=== PATIENT | male | born 1960 | race Two or more races ===

== ENCOUNTER 2023-12-15 10:25 | Emergency (ER) | payer OTHER ==
[~2023-12-15] VITALS: Ht 172.7 cm; Wt 73.0 kg
[2023-12-15] MEDS ORDERED: LIDOCAINE 1% INJ 50 ML MDV IJ ONE (11:04)
[2023-12-15] MEDS ORDERED: TDAP [DIPH/PERTUSSIS/TET] 0.5 ML VIAL IM ONE (11:12)
[2023-12-15] MEDS: TDAP [DIPH/PERTUSSIS/TET] 0.5 ML VIAL IM ONE (11:14)
[2023-12-15 11:53] VITALS: BP 134/93; TEMP 97.8; O2SAT 99
== END 2023-12-15 11:53 | disposition home or self-care (01) ==
LOC: ER 10:35
DX: S01.81XA Laceration without foreign body of other part of head, initial encounter (principal); Z60.2 Problems related to living alone; Z86.79 Personal history of other diseases of the circulatory system; X58.XXXA Exposure to other specified factors, initial encounter; Y93.89 Activity, other specified; Y92.092 Bedroom in other non-institutional residence as the place of occurrence of the external cause; Y99.2 Volunteer activity
CPT/HCPCS: 12013; 90471; 90715; 99283; A6403; J3490

== ENCOUNTER 2023-12-20 12:13 | Emergency (ER) | payer OTHER ==
[~2023-12-20] VITALS: Ht 175.3 cm; Wt 72.6 kg
[2023-12-20 12:13] VITALS: BP 133/76; TEMP 98.2
[2023-12-20 12:39] VITALS: O2SAT 100
== END 2023-12-20 12:40 | disposition home or self-care (01) ==
LOC: ER 12:28
DX: S01.112D Laceration without foreign body of left eyelid and periocular area, subsequent encounter (principal); Z86.79 Personal history of other diseases of the circulatory system; Z60.2 Problems related to living alone; X58.XXXD Exposure to other specified factors, subsequent encounter